=== PATIENT | female | born 1955 | race Two or more races ===

== ENCOUNTER 2023-05-14 21:13 | Emergency (ER) | payer MEDICARE, OTHER ==
[~2023-05-14] VITALS: Ht 165.1 cm; Wt 80.0 kg
[2023-05-14 21:39] VITALS: BP 164/77; PULSE 60; RESP 18; O2SAT 99
== END 2023-05-14 21:43 | disposition left against medical advice (07) ==
LOC: ER 21:13
DX: M79.675 Pain in left toe(s) (principal); M79.674 Pain in right toe(s); Z53.21 Procedure and treatment not carried out due to patient leaving prior to being seen by health care provider